=== PATIENT | female | born 1995 ===

== ENCOUNTER 2016-09-23 22:59 | Outpatient (CLI) | payer OTHER ==
[2016-09-24] MEDS ORDERED: PRENTAB9 PO (13:56)
[2016-09-24] MEDS ORDERED: ACET50TA PO (13:58)
[2016-09-24] MEDS ORDERED: DIPH12.527 PO (14:00)
== END 2016-09-24 00:20 | disposition home or self-care (01) ==
LOC: M LDO 22:59
PROVIDERS: ATTEND Obstetrics & Gynecology
DX: O47.1 False labor at or after 37 completed weeks of gestation (principal); Z3A.40 40 weeks gestation of pregnancy

== ENCOUNTER 2016-09-24 13:21 | Inpatient (IN) | payer OTHER ==
[~2016-09-24] VITALS: Ht 177.8 cm; Wt 95.0 kg
[2016-09-24] MEDS ORDERED: PRENTAB9 PO (13:56)
[2016-09-24] MEDS ORDERED: ACET50TA PO (13:58)
[2016-09-24] MEDS ORDERED: LR 1,000 ML IV SCH ×2 (13:59→17:23)
[2016-09-24] MEDS ORDERED: DIPH12.527 PO (14:00)
[2016-09-24 14:59] LABS: MEAN CORPUSCULAR HEMOGLOBIN 30.4 pg (27.0-33.0); MEAN CORPUSCULAR HGB CONC 33.9 g/dl (32.0-36.5); MEAN CORPUSCULAR VOLUME 89.7 fl (80.0-96.0); RED CELL DISTRIBUTION WIDTH 12.9 % (11.5-14.5); WHITE BLOOD COUNT 24.3 K/mm3 (4.0-10.0)
[2016-09-24] MEDS ORDERED: OXYTOCIN 30 UNITS IN 0.9% NaCl 500ML IV BAG (J2590) As Ordered ONE (15:24)
[2016-09-24] MEDS ORDERED: OXYTOCIN INJ 10 UNITS/ML VIAL (J2590) As Ordered ONE (15:24)
[2016-09-24] MEDS ORDERED: OXYTOCIN INJ 10 UNITS/ML VIAL (J2590) IV ONE (16:45)
[2016-09-24] MEDS ORDERED: DOCUSATE SODIUM 100 MG CAP PO PRN (16:45)
[2016-09-24] MEDS ORDERED: MEASLES,MUMPS,RUBELLA VACCINE INJ (MMR-II) (90707) SC SCH (16:45)
[2016-09-24] MEDS ORDERED: MOM 30ML SUSPENSION UDC PO PRN (16:45)
[2016-09-24] MEDS ORDERED: DIBUCAINE 1% OINTMENT 30GM TOP PRN (16:45)
[2016-09-24] MEDS ORDERED: ANUSOL HC CREAM 30GM TOP PRN (16:45)
[2016-09-24] MEDS ORDERED: RHOGAM 300 MCG (1500 IU) INJ (J2790) IM SCH (16:45)
[2016-09-24] MEDS ORDERED: METHYLERGONOVINE MALEATE 0.2 MG TAB PO PRN (16:45)
[2016-09-24 17:23] LABS: CORD GAS ABE A -4.1; CORD GAS HCO3 A 20.5 MEQ/L; CORD GAS O2 SAT A 84.4 %; CORD GAS PCO2 A 36.7 mmHg; CORD GAS PH A 7.366 UNITS; CORD GAS SBC A 20.8 MEQ/L; CORD GAS TCO2 A 21.7 MEQ/L
[2016-09-24] MEDS ORDERED: LACTATED RINGER'S 1000 ML IV STA (17:23)
[2016-09-24] MEDS ORDERED: BUPIVACAINE HCL 0.25% 10 ML VIAL SC ONE (17:30)
[2016-09-24] MEDS ORDERED: BICITRA 30ML SOLN UDC PO ONE (17:30)
--- NOTE | 2016-09-24 18:12 | HPE ---
DATE OF ADMISSION: 09/24/2016 A 21-year-old 1, para 0, estimated date of confinement (EDC) 09/24/2016, last menstrual period (LMP) 12/07/2015, admitted at 40 plus 6 in active labor and 9 cm dilatation. RISK FACTORS: She is Rh negative. Labs show O negative, HIV negative, hepatitis negative, RPR negative, rubella immune. Varicella by history. Pap normal. Urine negative. Gonorrhea and chlamydia negative. One-hour glucose 82. Group B streptococcus (GBS) negative. Cystic fibrosis (CF) negative. On examination we have a distressed female. Symphysis fundus 40, vertex occiput anterior (OA). -1 station, 9 cm. Category 1 strip. The rest of the examination is unremarkable. She is normocephalic, atraumatic. Neck: Full range of motion. Pupils equal and reactive to light. Distal pulses are symmetric. No evidence of deep vein thrombosis (DVT), pulmonary embolism (PE), or superficial phlebitis. Chest is clear bilaterally to bases. No wheezes or rhonchi. Thyroid is midline, nontender. No costovertebral angle (CVA) tenderness. Four-quadrant bowel sounds. Appropriate symphysis fundus height. No rashes or lesions. No pruritus. No arthralgia, myalgia. No complaint cough, wheezes, shortness of breath, or dyspnea on exertion. No chest pain. Not bleeding. Neurologic complete. No incontinency, urgency, frequency. No nausea, vomiting, diarrhea, or constipation. No diabetic issues. GYNECOLOGY HISTORY: None. FAMILY HISTORY: Noncontributory. SOCIAL HISTORY: She does not smoke, drink, or abuse drugs. She is . She is presently a soldier. Blood pressure is 136/63, respirations are 18, pulse is 80, temperature 99. Hemoglobin 13.6, hematocrit 40.0, platelets 196. Urine 1005, pH 6. SUMMARY: We have an active, almost fully-dilated lady in active labor. Anticipate spontaneous vaginal delivery. Will attempt to get an epidural; however, she is imminently close to delivery.
--- NOTE | 2016-09-24 18:19 | DN ---
DATE: 09/24/2016 This lady is a 1, para 0, who was admitted at 9 cm, rapidly progressed to full dilatation, category one strip, pushed over an intact perineum, a live female . scores of 8 and 9 at one and five minutes respectively. Cord was around the neck once; it was loose. Placenta delivered spontaneously after, three-vessel cord, membranes and tissues intact. Arterial and venous pH was performed. Blood gases are pending. The patient received 5 units IV push post placenta; however, IV went interstitial and did not receive any further tocolyctics. Uterus contracted well down under massage with no Pitocin. On examination, urethra was normal. Perineum was intact. Sphincter was tight. She had bilateral inner labial tears. They were not bleeding. #3-0 Vicryl on an SH was used to bring them together on either side, just to approximate the edges. Other than that, there was no other evidence of trauma to the vagina, the cervix, anterior, posterior norwood. The patient and baby tolerating procedure well. Copy To: [facility]
[2016-09-24 18:37] VITALS: BP 123/74
[2016-09-24] MEDS ORDERED: OXYTOCIN DRIP 30 UNITS in APPROPRIATE DILUENT 1 EA IV PRN (18:45)
[2016-09-24] MEDS: IBUPROFEN 800 MG TAB PO PRN (19:00)
[2016-09-24] MEDS: ACETAMINOPHEN 500 MG TAB PO PRN (19:54)
[2016-09-25] MEDS: ACETAMINOPHEN 500 MG TAB PO PRN ×3 (05:23→20:48)
[2016-09-25] MEDS: IBUPROFEN 800 MG TAB PO PRN ×3 (05:24→20:47)
[2016-09-25 05:32] VITALS: BP 136/74
[2016-09-25 07:02] LABS: MEAN CORPUSCULAR HGB CONC 34.6 g/dl (32.0-36.5); MEAN CORPUSCULAR VOLUME 89.4 fl (80.0-96.0); RED CELL DISTRIBUTION WIDTH 12.7 % (11.5-14.5); WHITE BLOOD COUNT 22.4 K/mm3 (4.0-10.0)
[2016-09-25] MEDS: PRENATAL VITAMIN TAB PO SCH (07:59)
[2016-09-25 18:44] VITALS: BP 123/76
[2016-09-26] MEDS: IBUPROFEN 800 MG TAB PO PRN (05:57)
[2016-09-26] MEDS: ACETAMINOPHEN 500 MG TAB PO PRN (05:58)
[2016-09-26 06:15] VITALS: BP 149/66
[2016-09-26] MEDS: PRENATAL VITAMIN TAB PO SCH (08:36)
[2016-09-26] MEDS ORDERED: IBUP-1114 PO (10:03)
[2016-09-26] MEDS ORDERED: PROC2.5C TOP (10:03)
[2016-09-26] MEDS ORDERED: DIBU1OIN TOP (10:03)
[2016-09-26] MEDS ORDERED: COLA100C PO (10:03)
--- NOTE | 2016-09-26 11:06 | IPN ---
DATE: 09/25/2016 day #1. 1 now para 1, in spontaneous labor, delivered a live female 8 pounds 3 ounces, 3714 grams, scores of 8 and 9 at 1 and 5 minutes, respectively. Arterial and venous pH were performed. The arterial pH was 7.36, base excess -4.1. Venous pH was not available. On her first day, we discussed phlebitis, cystitis, mastitis, endometritis and cellulitis, diet, exercise, pain management, perineal, breast and wound care. Blood pressure is 136/74, respirations are 18, pulse is 65 and temperature 97.2. The patient is planning on using oral contraceptives on her visit. The rest of the examination is unremarkable. She is normocephalic, atraumatic. Neck with full range of motion. Pupils equal and reactive to light. Chest is clear bilaterally to the bases. No wheezes or rhonchi. No costovertebral angle tenderness. Abdomen is soft. Uterus two below. Lochia is moderate. Perineum is healing. No rashes or lesions or pruritus. No cough, wheezes, shortness of breath or dyspnea on exertion. No arthralgia or myalgia. No complaints of chest pain. Not bleeding. Neuro complete. No incontinency, urngency, frequency. No nausea, vomiting, diarrhea or constipation. Our plan is to give her medications tomorrow at discharge, 6-week checkup, and oral contraceptives to start in six weeks' time.
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
== END 2016-09-26 13:19 | disposition home or self-care (01) | DRG 775 ==
LOC: M LDO 13:21 → M LDI 13:58 → M OBS 18:02
PROVIDERS: ADMIT Obstetrics & Gynecology; ATTEND Obstetrics & Gynecology
PROC: 10E0XZZ Delivery of Products of Conception, External Approach (ICD-10-PCS; principal; 2016-09-24)
PROC: 0HQ9XZZ Repair Perineum Skin, External Approach (ICD-10-PCS; 2016-09-24)
DX: O62.3 Precipitate labor (principal); Z3A.40 40 weeks gestation of pregnancy; O71.89 Other specified obstetric trauma; O48.0 Post-term pregnancy; O69.81X0 Labor and delivery complicated by cord around neck, without compression, not applicable or unspecified; O70.0 First degree perineal laceration during delivery; Z37.0 Single live birth

== ENCOUNTER 2018-02-09 18:57 | Emergency (ER) | payer OTHER ==
[2018-02-09] MEDS: IBUPROFEN 600 MG TAB PO (20:59)
== END 2018-02-09 21:41 | disposition home or self-care (01) ==
LOC: M ED 18:57
DX: S80.212A Abrasion, left knee, initial encounter (principal); S90.32XA Contusion of left foot, initial encounter; V19.88XA Pedal cyclist (driver) (passenger) injured in other specified transport accidents, initial encounter; Y92.138 Other place on military base as the place of occurrence of the external cause; F17.200 Nicotine dependence, unspecified, uncomplicated
CPT/HCPCS: 73630